=== PATIENT | male | born 1970 | race Asian ===

== ENCOUNTER 2017-01-07 14:12 | Emergency (ER) | payer OTHER ==
[2017-01-07 14:44] LABS: ABSOLUTE NEUTROPHIL COUNT 5.8 K/mm3 (1.8-7.7); BASO % 0.2 % (0.2-1.0); EOS % 0.2 % (0.9-2.9); HEMATOCRIT 45.5 % (32.0-52.0); HEMOGLOBIN 15.9 gm/l (14.0-18.0); IMM NEUT% 0.2 % (0-1); LYMPH # 2.5 (1.0-4.8); LYMPH % 27.4 % (15-45); MEAN CELL VOLUME 90.8 fl (80.0-94.0); MEAN CORPUSCULAR HEMOGLOBIN 31.7 pg (27.0-31.0); MEAN CORPUSCULAR HGB CONC 34.9 g/dl (33.0-37.0); MEAN PLATELET VOLUME 10.2 fl (7.4-10.4); MONO # 0.6 (0.0-0.8); MONO % 6.9 % (4-12); NEUT % 65.1 % (43-75); PLATELET COUNT 230 K/mm3 (130-400); RED CELL DISTRIBUTION WIDTH 12.5 % (11.5-14.5)
[2017-01-07 14:51] LABS: ALB/GLOB RATIO 1.8 (>1.0); ALBUMIN 4.4 gm/dL (3.5-5.7)
--- NOTE | 2017-01-07 15:20 | RAD ---
Exam: Two-view chest COMPARISON: None INDICATION: Left-sided chest pain. FINDINGS: PA and lateral views of the chest were obtained. Cardiac silhouette is within normal limits. Lungs are well-inflated. There is no focal airspace disease or pleural effusion. Asymmetric opacity within the right lung apex is noted on the frontal view, and is felt to reflect asymmetric degenerative changes related to the first rib end. A few old rib fractures are noted on the left. There are mild degenerative changes within the mid to lower thoracic spine with there are some physiologic wedging of T8 and T9. IMPRESSION: No acute pulmonary process.
== END 2017-01-07 16:15 | disposition home or self-care (01) ==
LOC: ED 14:12
DX: M94.0 Chondrocostal junction syndrome [Tietze] (principal); I10 Essential (primary) hypertension